=== PATIENT | female | born 1975 | race Caucasian/White ===

== ENCOUNTER 2017-07-13 13:15 | Emergency (ER) | payer SELFPAY ==
[~2017-07-13] VITALS: Ht 153.7 cm; Wt 63.1 kg
[2017-07-13 13:55] VITALS: BP 125/80
--- NOTE | 2017-07-13 15:18 | NUR ---
PATIENT AMBULATED TO ER BED 11
[2017-07-13] MEDS ORDERED: KETOROLAC 30 MG/ML VIAL IVP ONE (15:25)
[2017-07-13] MEDS ORDERED: NACL 0.9% 1,000 ML IV ONE (15:25)
--- NOTE | 2017-07-13 15:30 | NUR ---
42F BIB FAMILY C/O MID-LOWER ABDOMINAL PAIN X 1235 TODAY. PT STATES HAS MASS NEXT TO BLADDER AND FEELS MAY BE RELATED TO PAIN; SKIN IS PINK/WARM/DRY; AAOX4 WITH EVEN AND STEADY GAIT; RR ARE EVEN AND UNLABORED; PATIENT STATES PAIN OF 6/10 AT THIS TIME; VSS; PATIENT POSITIONED FOR COMFORT; HOB ELEVATED; BEDRAILS UP X2; BED DOWN. ER MD MADE AWARE OF PT STATUS.
[2017-07-13 16:05] LABS: BASOPHILS # (AUTO) 0.1 K/uL (0.00-0.22); BASOPHILS % (AUTO) 1.2 % (0.0-2.0); EOSINOPHILS # (AUTO) 0.1 K/uL (0-0.4); EOSINOPHILS % (AUTO) 0.8 % (0.0-4.0); HEMATOCRIT 41.3 % (36-48); HEMOGLOBIN 13.7 g/dL (12.0-16.0); LYMPHOCYTES # (AUTO) 2.1 K/uL (2.5-16.5); LYMPHOCYTES % (AUTO) 22.1 % (20.5-51.1); MEAN CORPUSCULAR HEMOGLOBIN 30 pg (27-31); MEAN CORPUSCULAR HGB CONC 33 g/dL (33-37); MEAN CORPUSCULAR VOLUME 91 fL (80-94); MONOCYTES # (AUTO) 0.3 K/uL (0.8-1.0); NEUTROPHILS # (AUTO) 7.1 K/uL (1.8-7.7); NEUTROPHILS % (AUTO) 72.9 % (42.2-75.2); PLATELET COUNT (AUTO) 243 K/uL (140-450); RED BLOOD CELL COUNT(AUTO) 4.54 MIL/uL (4.20-5.40); RED CELL DISTRIBUTION WIDTH 12.1 % (11.6-13.7); WHITE BLOOD COUNT (AUTO) 9.6 K/uL (4.8-10.8)
[2017-07-13 16:09] LABS: APPEARANCE,URINE HAZY (CLEAR); BILIRUBIN,URINE NEGATIVE (NEGATIVE); BLOOD, URINE NEGATIVE (NEGATIVE); COLOR,URINE YELLOW (YELLOW); LEUKOCYTE ESTERASE ,URINE NEGATIVE (NEGATIVE); NITRITE, URINE NEGATIVE (NEGATIVE); UGLUCOSE NEGATIVE (NEGATIVE)
[2017-07-13 16:17] LABS: ANION GAP 11.4 (8-16); CARBON DIOXIDE 26.5 mmol/L (21-32); CREATININE 0.7 mg/dL (0.6-1.3); POTASSIUM 3.9 mmol/L (3.5-5.1)
--- NOTE | 2017-07-13 16:18 | NUR ---
US BY BEDSIDE
[2017-07-13 16:21] LABS: PROTHROMBIN TIME 9.9 secs (10.8-13.4)
[2017-07-13 16:23] LABS: ALBUMIN 3.5 g/dL (3.4-5.0); TOTAL BILIRUBIN 0.3 mg/dL (0.0-1.0)
[2017-07-13 16:30] LABS: RBC,URINE NONE SEEN /HPF (0-5); WBC,URINE 0-5 (RARE) /HPF (0-5)
--- NOTE | 2017-07-13 17:35 | NUR ---
PT LAYING SUPINE IN GURNEY; RESTING WITH EYES CLOSED; PT IS AOX4, RR ARE EVEN AND UNLABORED; PT WITH NO COMPLAINTS; AWAITING RESULTS OF CT; WILL CONTINUE TO MONITOR.
[2017-07-13 19:06] VITALS: BP 127/79
== END 2017-07-13 19:08 | disposition home or self-care (01) ==
LOC: MED 13:15
DX: D25.9 Leiomyoma of uterus, unspecified (principal)
CPT/HCPCS: 36415; 74177; 76830; 80053; 81001; 81025; 82150; 83690; 85025; 85610; 85730; 96361; 96374; 99285; J1885; J7030; Q0092; Q9967